=== PATIENT | female | born 2000 | race Caucasian/White ===

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

== ENCOUNTER 2019-11-18 12:07 | Outpatient (CLI) | payer BC ==
--- NOTE | 2019-11-18 13:45 | ULT ---
Bilateral renal ultrasound CLINICAL INDICATION: Urinary tract infections. COMPARISON: None FINDINGS: Right kidney: There is no evidence of a renal mass, renal calculus, or hydronephrosis seen. The right kidney measures 10.7 cm x 4.2 cm. Left kidney: There is no evidence of a renal mass, renal calculus, or hydronephrosis. The left kidney measures 10.8 cm x 4.7 cm. Urinary bladder: Distended and normal in appearance. The prevoid urinary bladder volume is 517 mL wit h a post void urinary bladder volume of 7.2 mL. IMPRESSION: 1. Normal appearing bilateral kidneys without evidence of hydronephrosis. 2. Normal-appearing urinary bladder. No signal postvoid residual is present.
== END 2019-11-18 12:08 | disposition home or self-care (01) ==
LOC: BICULT 12:07
PROVIDERS: ATTEND Family Medicine
DX: R39.89 Other symptoms and signs involving the genitourinary system (principal)
CPT/HCPCS: 76770